=== PATIENT | male | born 1960 | race Caucasian/White ===

== ENCOUNTER 2020-02-01 16:50 | Observation (INO) | payer OTHER ==
[2020-02-01] MEDS ORDERED: SODIUM CHLORIDE 0.9% 500 ML 500 ML IV STA (16:54)
--- NOTE | 2020-02-01 17:07 | ED ---
General Adult HPI - General Chief complaint: Trauma Stated complaint: trauma Time Seen by Provider: 02/01/20 16:50 Source: patient, EMS, RN notes reviewed, old records reviewed Mode of arrival: EMS Limitations: no limitations - History of Present Illness Initial comments: This is a 59-year-old male who presents to the emergency department after his lawnmower rolled over him while he was mowing his lawn. Patient states she was mowing on a hill and rolled right over he put his foot down and when he tried to get up afterward rolled over he was unable to walk on her foot. EMS stated that at the scene his ankle looked dislocated in the process of moving of the ankle seemed to go back into place. Patient has a laceration on both sides of the malleolus posteriorly on the medial aspect that measures about 2-1/2 cm on the lateral side it measures about 4 cm. Patient also complains of a little lower back pain. Patient states he did not hit his head or neck. Patient has no headache and no neck tenderness. Patient denies any numbness weakness. Patient denies any chest pain or upper back pain. Patient denies any abdominal pain. Patient denies any other extremity pain except for the right ankle and proximal right leg. Patient admits to having a few drinks prior to mowing his lawn - Related Data Home Medications Medication Instructions Recorded Confirmed Ibuprofen [Motrin Ib] 400 mg PO Q8H PRN 02/01/20 02/01/20 Allergies Allergy/AdvReac Type Severity Reaction Status Date / Time No Known Allergies Allergy Verified 02/01/20 18:46 Review of Systems ROS Statement: Those systems with pertinent positive or pertinent negative responses have been documented in the HPI. ROS Other: All systems not noted in ROS Statement are negative. Past Medical History Past Medical History: No Reported History History of Any Multi-Drug Resistant Organisms: None Reported Past Surgical History: No Surgical Hx Reported Past Psychological History: No Psychological Hx Reported Smoking Status: Never smoker Past Alcohol Use History: Daily Past Drug Use History: None Reported General Exam - General Exam Comments Initial Comments: GENERAL: Patient is well-developed and well-nourished. Patient is nontoxic and well- hydrated and is in mild distress. ENT: Neck is soft and supple. No significant lymphadenopathy is noted. Oropharynx is clear. Moist mucous membranes. Neck has full range of motion without eliciting any pain. EYES: The sclera were anicteric and conjunctiva were pink and moist. Extraocular movements were intact and pupils were equal round and reactive to light. Eyelids were unremarkable. PULMONARY: Unlabored respirations. Good breath sounds bilaterally. No audible rales rhonchi or wheezing was noted. CARDIOVASCULAR: There is a regular rate and rhythm without any murmurs gallops or rubs. ABDOMEN: Soft and nontender with normal bowel sounds. SKIN: Skin is clear with no lesions or rashes and otherwise unremarkable. NEUROLOGIC: Patient is alert and oriented x3. Cranial nerves II through XII are grossly intact. Motor and sensory are also intact. Normal speech, volume and content. Symmetrical smile. MUSCULOSKELETAL: Patient's right ankle has a laceration both medially and laterally medial it measures about 2 and half centimeters laterally measures about 4 cm. Both wounds are dirty. Patient also has some proximal right fibula pain. Patient has a little bit of lower back pain LYMPHATICS: No significant lymphadenopathy is noted PSYCHIATRIC: Normal psychiatric evaluation. Limitations: no limitations Course Vital Signs 02/01/20 16:51 Temperature 98.5 F Pulse Rate 108 H Respiratory 20 Rate Blood Pressure 147/96 O2 Sat by Pulse 97 Oximetry Medical Decision Making - Medical Decision Making Patient states she's had a tetanus shot recently. Patient has good dorsal pedis pulses. Patient also has good posterior tibial pulses This x-ray of the lumbar spine shows no acute abnormality. X-ray of the ankle showed no acute normalities. Because of the report of a possible dislocation of the ankle is CT his ankle and it again showed no fracture. Nursing already irrigated the patient's wound I got quite a bit of debris out I went in and continue to irrigate after the CAT scan was done and I continue to 5 more debris and it appeared that maybe the patient had some sort of penetrating injury that went from one side to the other just anterior to the Achilles tendon. At this point in time I spoke with Dr. Grayson and told him my concerns about possible contamination he agreed to come in graciously and wash the patient out the operating room. - Lab Data Result diagrams: 02/01/20 16:54 02/01/20 16:54 Lab Results 02/01/20 02/01/20 02/01/20 Range/Units 16:54 16:54 16:54 WBC 9.4 (3.8-10.6) k/uL RBC 4.70 (4.30-5.90) m/uL Hgb 14.4 (13.0-17.5) gm/dL Hct 43.0 (39.0-53.0) % MCV 91.4 (80.0-100.0) fL MCH 30.6 (25.0-35.0) pg MCHC 33.5 (31.0-37.0) g/dL RDW 12.4 (11.5-15.5) % Plt Count 171 (150-450) k/uL Neutrophils % 62 % Lymphocytes % 28 % Monocytes % 5 % Eosinophils % 2 % Basophils % 1 % Neutrophils # 5.9 (1.3-7.7) k/uL Lymphocytes # 2.6 (1.0-4.8) k/uL Monocytes # 0.5 (0-1.0) k/uL Eosinophils # 0.2 (0-0.7) k/uL Basophils # 0.1 (0-0.2) k/uL PT 10.0 (9.0-12.0) sec INR 1.0 (<1.2) APTT 22.4 (22.0-30.0) sec Sodium 138 (137-145) mmol/L Potassium 4.6 (3.5-5.1) mmol/L Chloride 109 H (98-107) mmol/L Carbon Dioxide 18 L (22-30) mmol/L Anion Gap 11 mmol/L BUN 12 (9-20) mg/dL Creatinine 0.77 (0.66-1.25) mg/dL Est GFR (CKD-EPI)AfAm >90 (>60 ml/min/1.73 sqM) Est GFR (CKD-EPI)NonAf >90 (>60 ml/min/1.73 sqM) Glucose 95 (74-99) mg/dL Plasma Lactic Acid Volodymyr (0.7-2.0) mmol/L Calcium 9.0 (8.4-10.2) mg/dL Total Bilirubin 0.7 (0.2-1.3) mg/dL AST 32 (17-59) U/L ALT 39 (4-49) U/L Alkaline Phosphatase 87 (38-126) U/L Total Creatine Kinase (55-170) U/L CK-MB (CK-2) (0.0-2.4) ng/mL CK-MB (CK-2) Rel Index Troponin I (0.000-0.034) ng/mL Total Protein 6.7 (6.3-8.2) g/dL Albumin 4.2 (3.5-5.0) g/dL Amylase 62 (30-110) U/L Lipase 114 (23-300) U/L Serum Alcohol 89 mg/dL 02/01/20 02/01/20 Range/Units 16:54 16:54 WBC (3.8-10.6) k/uL RBC (4.30-5.90) m/uL Hgb (13.0-17.5) gm/dL Hct (39.0-53.0) % MCV (80.0-100.0) fL MCH (25.0-35.0) pg MCHC (31.0-37.0) g/dL RDW (11.5-15.5) % Plt Count (150-450) k/uL Neutrophils % % Lymphocytes % % Monocytes % % Eosinophils % % Basophils % % Neutrophils # (1.3-7.7) k/uL Lymphocytes # (1.0-4.8) k/uL Monocytes # (0-1.0) k/uL Eosinophils # (0-0.7) k/uL Basophils # (0-0.2) k/uL PT (9.0-12.0) sec INR (<1.2) APTT (22.0-30.0) sec Sodium (137-145) mmol/L Potassium (3.5-5.1) mmol/L Chloride (98-107) mmol/L Carbon Dioxide (22-30) mmol/L Anion Gap mmol/L BUN (9-20) mg/dL Creatinine (0.66-1.25) mg/dL Est GFR (CKD-EPI)AfAm (>60 ml/min/1.73 sqM) Est GFR (CKD-EPI)NonAf (>60 ml/min/1.73 sqM) Glucose (74-99) mg/dL Plasma Lactic Acid Volodymyr 3.2 H* (0.7-2.0) mmol/L Calcium (8.4-10.2) mg/dL Total Bilirubin (0.2-1.3) mg/dL AST (17-59) U/L ALT (4-49) U/L Alkaline Phosphatase (38-126) U/L Total Creatine Kinase 45 L (55-170) U/L CK-MB (CK-2) 0.7 (0.0-2.4) ng/mL CK-MB (CK-2) Rel Index 1.6 Troponin I <0.012 (0.000-0.034) ng/mL Total Protein (6.3-8.2) g/dL Albumin (3.5-5.0) g/dL Amylase (30-110) U/L Lipase (23-300) U/L Serum Alcohol mg/dL Critical Care Time Critical Care Time: Yes Total Critical Care Time: 35 Disposition Clinical Impression: Fracture of proximal end of fibula, Penetrating ankle wound Disposition: ADMITTED IP TO THIS HOSP Referrals: None,Stated [Primary Care Provider] - 1-2 days Time of Disposition: 19:11
[2020-02-01 17:11] LABS: Basophils # (A) 0.1 k/uL (0-0.2); Basophils % (A) 1 %; Eosinophils # (A) 0.2 k/uL (0-0.7); Eosinophils % (A) 2 %; HGB 14.4 gm/dL (13.0-17.5); Lymphocytes # (A) 2.6 k/uL (1.0-4.8); Lymphocytes % (A) 28 %; MCH 30.6 pg (25.0-35.0); MCHC 33.5 g/dL (31.0-37.0); MCV 91.4 fL (80.0-100.0); Mean Platelet Volume 9.6; Monocytes # (A) 0.5 k/uL (0-1.0); Monocytes % (A) 5 %; Neutrophils # (A) 5.9 k/uL (1.3-7.7); Neutrophils % (A) 62 %; Platelet Count 171 k/uL (150-450); RDW 12.4 % (11.5-15.5); WBC 9.4 k/uL (3.8-10.6)
[2020-02-01] MEDS ORDERED: HYDROmorphone 1 MG/ML 1 ML SYRINGE IVP STA (17:16)
[2020-02-01] MEDS ORDERED: ONDANSETRON 4 MG/2 ML VIAL IVP STA (17:16)
--- NOTE | 2020-02-01 17:22 | XR ---
EXAMINATION TYPE: XR tibia fibula RT DATE OF EXAM: 02/01/2020 COMPARISON: NONE HISTORY: Trauma. Pain. TECHNIQUE: 5 views FINDINGS: There is soft tissue defect over the posterior aspect of the lower tibia consistent with la ceration. There are small densities that measure up to 1 mm that could be foreign bodies in the soft tissues. The tibia appears intact. There is oblique nondisplaced fracture of the head of the fibula. Ankle mortise is anatomic. IMPRESSION: Laceration deformity of the soft tissues over the posterior lower tibia. Fibula head fracture.
[2020-02-01 17:23] LABS: Partial Thromboplastin Time 22.4 sec (22.0-30.0)
--- NOTE | 2020-02-01 17:24 | XR ---
EXAMINATION TYPE: XR chest 1V portable DATE OF EXAM: 02/01/2020 COMPARISON: NONE HISTORY: Pain. Trauma. TECHNIQUE: Single view FINDINGS: Heart and mediastinum are normal. There is 3 cm sharply marginated rounded masslike density over the left lateral lung base. There is possible sharply marginated similar 12 mm density over the left upper lobe adjacent to the anterior first rib. The right lung is clear. There is no pleural eff usion or pneumothorax. I see no rib fracture. IMPRESSION: Left-sided pulmonary densities. Left lower lobe density is relatively dense and sharply m arginated and could be a large granuloma. Left upper lobe density also probably a granuloma.
--- NOTE | 2020-02-01 17:26 | XR ---
EXAMINATION TYPE: XR pelvis AP view DATE OF EXAM: 02/01/2020 COMPARISON: NONE HISTORY: Trauma. Pain. TECHNIQUE: Single view FINDINGS: The pelvic ring is intact. Proximal femurs and hip joints are intact. Sacroiliac joints garrett ear normal. IMPRESSION: Normal pelvis.
[2020-02-01 17:33] LABS: ALT 39 U/L (4-49); AST 32 U/L (17-59); African American GFR (CKD) >90 (>60 ml/min/1.73 sqM); Albumin 4.2 g/dL (3.5-5.0); Alkaline Phosphatase 87 U/L (38-126); Amylase 62 U/L (30-110); Anion Gap 11 mmol/L; Blood Urea Nitrogen 12 mg/dL (9-20); Carbon Dioxide 18 mmol/L (22-30); Chloride 109 mmol/L (98-107); Creatine Kinase 45 U/L (55-170); Glucose 95 mg/dL (74-99); Lipase 114 U/L (23-300); Non-African American GFR(CKD) >90 (>60 ml/min/1.73 sqM); Sodium 138 mmol/L (137-145); Total Bilirubin 0.7 mg/dL (0.2-1.3); Total Protein 6.7 g/dL (6.3-8.2)
[2020-02-01 17:42] LABS: Alcohol 89 mg/dL; Potassium 4.6 mmol/L (3.5-5.1)
[2020-02-01 17:45] LABS: Creatine Kinase MB 0.7 ng/mL (0.0-2.4); Troponin I <0.012 ng/mL (0.000-0.034)
--- NOTE | 2020-02-01 17:58 | CT ---
CT scan of the right ankle. History pain. Trauma. Comparison none. TECHNIQUE: Multiple axial sections were obtained from the mid tibia to the mid metatarsals without contrast. FINDINGS: There is soft tissue air posterior to the lower tibia. There is 2 mm foreign body in the soft tissues posteriorly. There is laceration deformity that measures up to 1.6 cm in depth. This is seen on the medial aspect of the Achilles tendon. The calcaneus is intact. Talus is intact. Ankle mortise is anatomic. I see no focal bone destruction. Joint spaces are fairly normal. The bones of the midfoot appear intact. Proximal metatarsals are int act. IMPRESSION: Large laceration defect on the medial posterior lower leg as above. Small foreign body. Achilles tend on appears intact. No fracture seen.
--- NOTE | 2020-02-01 18:06 | XR ---
EXAMINATION TYPE: XR lumbosacral spine min 4V DATE OF EXAM: 02/01/2020 COMPARISON: NONE HISTORY: Back pain TECHNIQUE: 5 views FINDINGS: There is 9 mm anterior subluxation of L5 in relation S1. I see no definite spondylolysis. T he disc spaces are normal. There is no compression fracture. Sacroiliac joints appear intact. IMPRESSION: First-degree L5-S1 spondylolisthesis without definite spondylolysis. No acute bony abnorm ality seen.
[2020-02-01] MEDS ORDERED: LIDOCAINE 1% INJ 10MG/ML (20 ML MDV) SQ ONE (18:20)
[2020-02-01] MEDS ORDERED: ONDANSETRON 4 MG/2 ML VIAL ONE (20:11)
[2020-02-01] MEDS ORDERED: SUCCINYLCHOLINE CHLORIDE 100 MG/5 ML SYR IV ONE (20:11)
[2020-02-01] MEDS ORDERED: DEXAMETHASONE SOD PHOSPHATE 10 MG/ML 1 ML VIAL ONE (20:11)
[2020-02-01] MEDS ORDERED: IV FLUID CONTINUATION 800 ML IV ONE (20:11)
[2020-02-01] MEDS ORDERED: fentaNYL (PF) 50 MCG/ML 2 ML AMP ONE (20:11)
[2020-02-01] MEDS ORDERED: PROPOFOL 10 MG/ML 20 ML VIAL IV ONE (20:11)
[2020-02-01] MEDS ORDERED: ePHEDrine SULFATE/0.9% NACL/PF 50 MG/5 ML SYRINGE IV ONE (20:11)
[2020-02-01] MEDS ORDERED: MIDAZOLAM 2 MG/2 ML VIAL ONE (20:11)
[2020-02-01] MEDS ORDERED: LIDOCAINE 1% INJ 10MG/ML (20 ML MDV) ONE (20:11)
--- NOTE | 2020-02-01 20:13 | P.HPOR ---
History of Present Illness H&P Date: 02/01/20 Chief Complaint: Right ankle injury 59-year-old patient was mowing his lawn earlier today the long more flipped over sustaining some type of impaling injury to the posterior aspect of the right ankle. Review of Systems Constitutional: Reports as per HPI Past Medical History Past Medical History: No Reported History History of Any Multi-Drug Resistant Organisms: None Reported Past Surgical History: No Surgical Hx Reported Past Psychological History: No Psychological Hx Reported Smoking Status: Never smoker Past Alcohol Use History: Daily Past Drug Use History: None Reported Medications and Allergies Home Medications Medication Instructions Recorded Confirmed Type Ibuprofen [Motrin Ib] 400 mg PO Q8H PRN 02/01/20 02/01/20 History Allergies Allergy/AdvReac Type Severity Reaction Status Date / Time No Known Allergies Allergy Verified 02/01/20 18:46 Physical Examination Osteopathic Statement: *. No significant issues noted on an osteopathic structural exam other than those noted in the History and Physical/Consult. There appears to be a traumatic laceration measuring about 3 cm along the lateral posterior ankle area just anterior to the Achilles is also a 3-4 cm laceration on the medial aspect of the ankle again this is posteriorly just anterior to the Achilles tendon. The Achilles itself appears to be intact. There is a good pulse dorsally. The patient is able to dorsiflex and plantarflex ankle. The patient's able to move his toes with no pain. He has good perfusion sensation distally. Results - Labs Labs: Abnormal Lab Results - Last 24 Hours (Table) 02/01/20 02/01/20 02/01/20 Range/Units 16:54 16:54 16:54 Chloride 109 H (98-107) mmol/L Carbon Dioxide 18 L (22-30) mmol/L Plasma Lactic Acid Volodymyr 3.2 H* (0.7-2.0) mmol/L Total Creatine Kinase 45 L (55-170) U/L H & H 02/01/20 Range/Units 16:54 Hgb 14.4 (13.0-17.5) gm/dL Hct 43.0 (39.0-53.0) % Coagulation 02/01/20 Range/Units 16:54 INR 1.0 (<1.2) Result Diagrams: 02/01/20 16:54 02/01/20 16:54 - Diagnostic results Knee x-ray: report reviewed, image reviewed (Proximal fibular fracture) Ankle/Foot x-ray: report reviewed (Soft tissue injury no fracture), image reviewed Assessment and Plan Assessment: 1. Right ankle impaling injury posterior aspect 2. Right proximal fibular fracture Plan: I discussed his injury. I recommended irrigation with debridement and possible repair of any soft tissue injury that we encountered. The procedure, risks, complications and recovery were discussed, patient was agreeable. Consent was obtained. Time with Patient: Less than 30
[2020-02-01] MEDS ORDERED: BACITRACIN ZINC 500 UNIT/GM OINT 28.4 GM TUBE TOPICAL ONE (20:43)
[2020-02-01] MEDS ORDERED: HYDROcodone/APAP 5-325MG 1 EACH TAB PO PRN (20:53)
[2020-02-01] MEDS: HYDROmorphone 1 MG/ML 1 ML SYRINGE IVP ONE ×4 (20:55→21:13)
--- NOTE | 2020-02-01 20:58 | P.OP ---
Date of Procedure: 02/01/20 Preoperative Diagnosis: Right ankle penetrating wound Postoperative Diagnosis: Right ankle penetrating wound posterior aspect with complex lacerations involving the medial and lateral aspect Procedure(s) Performed: 1. Irrigation debridement right ankle penetrating wound 2. Repair 4 cm complex laceration medial aspect right ankle 3. Repair 5 cm complex laceration lateral aspect right ankle Anesthesia: GIGI Surgeon: Ralph Grayson Trackmobile Operator #1: Florencio Ruiz Estimated Blood Loss (ml): 3 Pathology: none sent Condition: stable Disposition: PACU Indications for Procedure: 59-year-old patient seen with a penetrating injury to the right ankle. I recommended irrigation and debridement with possible repair structures as indicated right ankle. He was agreeable and consent was obtained. Operative Findings: See description of procedure Description of Procedure: Patient was taken to the operative suite. Patient received preoperative IV antibiotics. Patient underwent a general anesthetic by the department of anesthesia. A well-padded tourniquet placed proximal right thigh. Right lower extremity prepped and draped in normal sterile orthopedic fashion. At this point the wound was evaluated. There was a penetrating wound involving the posterior aspect of the right ankle with lacerations on the medial lateral aspect. I fitted 6 my finger all the way through this penetrating wound. It was posterior to the tibia and anterior to the Achilles tendon. Both structures appeared intact. Upon deeper exploration of the wound I do not appreciate tearing of the Achilles and all other structures appeared intact and stable. Utilizing a 15 blade I debrided some devitalized tissue superficially essentially skin tissue along the medial lateral aspects of the ankle. I then irrigated the wound out with 3000 mL saline solution. I now explored the wound again and I did not note any additional devitalized abnormal looking tissue. We now repaired the 4 cm medial complex laceration utilizing nylon sutures loosely approximating the wound. I now repaired the lateral complex 5 semi-laceration utilizing nylon suture again loosely repairing this laceration. Sterile dressings were applied to include antibiotic ointment. Sterile web bone Owen bandage were applied. The patient was awakened and transferred to recovery stable condition. No tourniquet was utilized. Ulises TEAGUE assisted with the procedure.
[2020-02-01] MEDS ORDERED: VANCOMYCIN IV PER PHARMACY 1 EACH MISC MISCELLANE SCH (21:00)
--- NOTE | 2020-02-01 21:09 | P.GSHP ---
History of Present Illness H&P Date: 02/01/20 Chief Complaint: Prior to trauma 59-year-old male comes in the emergency department this afternoon as a priority 2 trauma activation. Patient was on his lawnmower when it rolled over him. Initially it was thought the patient had a open fracture dislocation of the right ankle. Further evaluation revealed a through and through penetrating injury to the ankle region just anterior to the Achilles tendon. The patient was taken to the operating room by orthopedics for washout. He was intoxicated. Patient was intoxicated on arrival. Complaining of some lower back pain and right ankle pain. No head trauma. Denies chest pain or abdominal pain. Patient evaluated in the recovery room after his washout. - Review of Systems Comment: The patient denies any acute changes in vision or hearing, no dysphagia or odynophagia, no chest pain or shortness of breath, no dysuria or hematuria, no headache, no runny nose, no rectal bleeding or melena, no unexplained weight loss Past Medical History Past Medical History: No Reported History History of Any Multi-Drug Resistant Organisms: None Reported Past Surgical History: No Surgical Hx Reported Past Psychological History: No Psychological Hx Reported Smoking Status: Never smoker Past Alcohol Use History: Daily Past Drug Use History: None Reported Medications and Allergies Home Medications Medication Instructions Recorded Confirmed Type Ibuprofen [Motrin Ib] 400 mg PO Q8H PRN 02/01/20 02/01/20 History Allergies Allergy/AdvReac Type Severity Reaction Status Date / Time No Known Allergies Allergy Verified 02/01/20 18:46 Surgical - Exam Vital Signs Temp Pulse Resp BP Pulse Ox 98.5 F 108 H 20 147/96 97 02/01/20 16:51 02/01/20 16:51 02/01/20 16:51 02/01/20 16:51 02/01/20 16:51 Physical exam: General: Well-developed, well-nourished HEENT: Normocephalic, sclerae nonicteric, atraumatic, trachea midline Chest: Nontender, equal breath sounds Abdomen: Nontender, nondistended Extremities: Right ankle with Owen wrap in place, some swelling appreciated, foot warm with palpable pedal pulses bilaterally Neuro: Alert and oriented Results - Labs 02/01/20 16:54 02/01/20 16:54 Abnormal Lab Results - Last 24 Hours (Table) 07/06/1202/01/20 02/01/20 Range/Units 16:54 16:54 16:54 Chloride 109 H (98-107) mmol/L Carbon Dioxide 18 L (22-30) mmol/L Plasma Lactic Acid Volodymyr 3.2 H* (0.7-2.0) mmol/L Total Creatine Kinase 45 L (55-170) U/L Diabetes panel 02/01/20 Range/Units 16:54 Sodium 138 (137-145) mmol/L Potassium 4.6 (3.5-5.1) mmol/L Chloride 109 H (98-107) mmol/L Carbon Dioxide 18 L (22-30) mmol/L BUN 12 (9-20) mg/dL Creatinine 0.77 (0.66-1.25) mg/dL Glucose 95 (74-99) mg/dL Calcium 9.0 (8.4-10.2) mg/dL AST 32 (17-59) U/L ALT 39 (4-49) U/L Alkaline Phosphatase 87 (38-126) U/L Total Protein 6.7 (6.3-8.2) g/dL Albumin 4.2 (3.5-5.0) g/dL Calcium panel 02/01/20 Range/Units 16:54 Calcium 9.0 (8.4-10.2) mg/dL Albumin 4.2 (3.5-5.0) g/dL Pituitary panel 02/01/20 Range/Units 16:54 Sodium 138 (137-145) mmol/L Potassium 4.6 (3.5-5.1) mmol/L Chloride 109 H (98-107) mmol/L Carbon Dioxide 18 L (22-30) mmol/L BUN 12 (9-20) mg/dL Creatinine 0.77 (0.66-1.25) mg/dL Glucose 95 (74-99) mg/dL Calcium 9.0 (8.4-10.2) mg/dL Adrenal panel 02/01/20 Range/Units 16:54 Sodium 138 (137-145) mmol/L Potassium 4.6 (3.5-5.1) mmol/L Chloride 109 H (98-107) mmol/L Carbon Dioxide 18 L (22-30) mmol/L BUN 12 (9-20) mg/dL Creatinine 0.77 (0.66-1.25) mg/dL Glucose 95 (74-99) mg/dL Calcium 9.0 (8.4-10.2) mg/dL Total Bilirubin 0.7 (0.2-1.3) mg/dL AST 32 (17-59) U/L ALT 39 (4-49) U/L Alkaline Phosphatase 87 (38-126) U/L Total Protein 6.7 (6.3-8.2) g/dL Albumin 4.2 (3.5-5.0) g/dL Assessment and Plan (1) Penetrating ankle wound Narrative/Plan: 59-year-old male with trauma 2 activation for right ankle injury. Patient doing fairly well after washout by orthopedics. No further plans for additional imaging currently. Recheck labs tomorrow. Monitor motor and sensory right foot. We'll consult hospitalist. Continue antibiotics. Possible discharge tomorrow. Current Visit: Yes Status: Acute Code(s): S91.039A - PUNCTURE WOUND WITHOUT FOREIGN BODY, UNSP ANKLE, INIT ENCNTR SNOMED Code(s): 079411133
[2020-02-01] MEDS ORDERED: MAGNESIUM HYDROXIDE 2,400 MG/10 ML CUP PO PRN (21:13)
[2020-02-01] MEDS ORDERED: HYDROmorphone 1 MG/ML 1 ML SYRINGE IVP PRN (21:13)
[2020-02-01] MEDS ORDERED: HYDROcodone/APAP 7.5-325MG 1 EACH TAB PO PRN (21:13)
[2020-02-01] MEDS ORDERED: ONDANSETRON 4 MG/2 ML VIAL IVP ONE (21:13)
[2020-02-01] MEDS: VANCOMYCIN 1,500 MG in SODIUM CHLORIDE 0.9% 250 ML IVPB SCH (22:07)
[2020-02-02] MEDS: KETOROLAC 30 MG/ML 1 ML VIAL IVP SCH ×2 (00:10→05:55)
[2020-02-02] MEDS: metroNIDAZOLE-NS PMX 500 MG in SALINE 1 100ML.BAG IVPB SCH ×2 (00:11→10:04)
[2020-02-02] MEDS: HEPARIN SODIUM,PORCINE 5,000 UNIT/ML 1 ML VIAL SQ SCH ×2 (00:11→10:05)
[2020-02-02 01:38] LABS: Appearance,Urine Clear (Clear); Bilirubin,Urine Negative (Negative); Blood,Urine Negative (Negative); Color,Urine Yellow; Glucose,Urine (UA) Negative (Negative); Ketones,Urine 2+ (Negative); Leukocyte Esterase,Urine Negative (Negative); Nitrite,Urine Negative (Negative); Protein,Urine Negative (Negative)
[2020-02-02 01:52] LABS: Amphetamine Screen,Urine Not Detected (NotDetected); Barbiturate Screen,Urine Not Detected (NotDetected); Benzodiazepines Screen,Urine Not Detected (NotDetected); Cocaine Screen,Urine Not Detected (NotDetected); Methadone Screen, Urine Not Detected (NotDetected); Opiate Screen,Urine Detected (NotDetected); Oxycodone Screen, Urine Not Detected (NotDetected); Phencyclidine Screen,Urine Not Detected (NotDetected); Tricyclic Antidepressant,Urine Not Detected (NotDetected); Urn Cannabinoid Scrn Not Detected (NotDetected)
[2020-02-02 04:12] VITALS: BP 130/81; PULSE 74; RESP 16; TEMP 98
[2020-02-02] MEDS: VANCOMYCIN 1,500 MG in SODIUM CHLORIDE 0.9% 250 ML IVPB SCH (05:55)
[2020-02-02 06:39] LABS: Basophils % (A) 0 %; Eosinophils % (A) 0 %; HCT 38.8 % (39.0-53.0); HGB 13.5 gm/dL (13.0-17.5); Lymphocytes # (A) 0.8 k/uL (1.0-4.8); Lymphocytes % (A) 8 %; MCH 32.1 pg (25.0-35.0); MCHC 34.9 g/dL (31.0-37.0); Mean Platelet Volume 8.7; Monocytes # (A) 0.3 k/uL (0-1.0); Monocytes % (A) 2 %; Neutrophils # (A) 9.2 k/uL (1.3-7.7); Neutrophils % (A) 89 %; Platelet Count 154 k/uL (150-450); RBC 4.21 m/uL (4.30-5.90); RDW 12.4 % (11.5-15.5); WBC 10.4 k/uL (3.8-10.6)
[2020-02-02 07:12] LABS: ALT 33 U/L (4-49); AST 24 U/L (17-59); African American GFR (CKD) >90 (>60 ml/min/1.73 sqM); Albumin 3.6 g/dL (3.5-5.0); Alkaline Phosphatase 81 U/L (38-126); Anion Gap 6 mmol/L; Blood Urea Nitrogen 13 mg/dL (9-20); Calcium 8.4 mg/dL (8.4-10.2); Carbon Dioxide 24 mmol/L (22-30); Chloride 107 mmol/L (98-107); Glucose 123 mg/dL (74-99); Non-African American GFR(CKD) >90 (>60 ml/min/1.73 sqM); Potassium 4.5 mmol/L (3.5-5.1); Sodium 137 mmol/L (137-145); Total Bilirubin 0.8 mg/dL (0.2-1.3); Total Protein 5.8 g/dL (6.3-8.2)
[2020-02-02] MEDS ORDERED: FAMOTIDINE 20 MG/2 ML VIAL IV SCH (09:00)
--- NOTE | 2020-02-02 09:37 | P.CONS ---
History of Present Illness - Reason for Consult Consult date: 02/02/20 lung abnormality Requesting physician: Cedrick Sahni - Chief Complaint right leg pain and laceration - History of Present Illness Patient is a 59-year-old male with no known past medical history who came to the emergency department as a primary trauma activation. Patient was urgently taken to the operating room for a washout of his right ankle and there was some concern about a penetrating injury and tendon exposure. We are asked to consult regarding left lung nodule. Patient seen and examined at bedside. He reports that he is having a throbbing feeling in his right ankle, is able to move the toes and we will be ankle, no chest pain, shortness breath, nausea, vomiting, or headache. He describes that his [place] came out from underneath him as he was going back up the hill and he placed his foot down to help with it which is when the [place] rolled. Intermittent dizziness with heat exposure. PCP: Dr. 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 Review of Systems Pertinent positives and negatives as discussed in HPI, a complete review of systems was performed and all other systems are negative. Past Medical History Additional Past Medical History / Comment(s): Hx HTN but was take off meds by his PCP History of Any Multi-Drug Resistant Organisms: None Reported Past Surgical History: No Surgical Hx Reported Past Anesthesia/Blood Transfusion Reactions: No Reported Reaction Smoking Status: Current every day smoker Additional History: 1 PPD tobacco. ETOH: weekends 2 beers and 2 shots - Past Family History Father Additional Family Medical History / Comment(s): from [place] Mother Family Medical History: Diabetes Mellitus Medications and Allergies Home Medications Medication Instructions Recorded Confirmed Type Ibuprofen [Motrin Ib] 400 mg PO Q8H PRN 02/01/20 02/01/20 History Cephalexin [Keflex] 500 mg PO Q6HR 7 Days #28 cap 02/02/20 Rx traMADol HCl [Ultram] 50 mg PO Q6H PRN #28 tab 02/02/20 Rx Allergies Allergy/AdvReac Type Severity Reaction Status Date / Time No Known Allergies Allergy Verified 02/01/20 18:46 Physical Exam Osteopathic Statement: *. No significant issues noted on an osteopathic structural exam other than those noted in the History and Physical/Consult. Vitals: Vital Signs Temp Pulse Pulse Pulse Resp BP BP 02/02/20 04:11 98.0 F 74 16 130/81 02/02/20 00:48 63 130/76 02/02/20 00:33 63 127/78 02/02/20 00:18 65 137/84 02/02/20 00:03 63 134/77 02/01/20 23:48 67 139/84 02/01/20 23:33 68 145/83 02/01/20 23:18 68 142/83 02/01/20 22:48 65 136/81 02/01/20 22:33 67 128/84 02/01/20 22:18 70 147/86 02/01/20 22:03 68 151/88 02/01/20 21:48 75 158/87 02/01/20 21:33 98.3 F 77 17 138/84 02/01/20 21:16 75 16 138/79 02/01/20 21:00 85 16 149/79 02/01/20 20:51 97.0 F L 84 16 150/77 02/01/20 16:51 98.5 F 108 H 20 147/96 Pulse Ox 02/02/20 04:11 97 02/02/20 00:48 97 02/02/20 00:33 97 02/02/20 00:18 97 02/02/20 00:03 97 02/01/20 23:48 97 02/01/20 23:33 98 02/01/20 23:18 98 02/01/20 22:48 97 02/01/20 22:33 97 02/01/20 22:18 98 02/01/20 22:03 97 02/01/20 21:48 97 02/01/20 21:33 93 L 02/01/20 21:16 93 L 02/01/20 21:00 91 L 02/01/20 20:51 96 02/01/20 16:51 97 Intake and Output 02/01/20 02/02/20 02/02/20 22:59 06:59 14:59 Intake Total 400 Output Total 500 Balance 400 -500 Intake: IV 400 Oral 0 Output: Urine 500 Other: # Voids 1 Weight 77 kg General: non toxic, no distress, appears at stated age, normal weight Derm: See just above the medial and lateral aspects of the right calf without warmth, erythema, or drainage no unusual ecchymoses, warm, dry Head: atraumatic, normocephalic, symmetric Eyes: EOMI, no lid lag, anicteric sclera, pupils equal round reactive to light ENT: Nose and ears atraumatic, no thrush, no pharyngeal erythema Neck: No thyromegaly, no cervical lymphadenopathy, trachea midline, supple Mouth: no lip lesion, mucus membranes moist Cardiovascular: S1S2 reg, no murmur, positive posterior tibial pulse bilateral, no edema, capillary refill less than 2 seconds Lungs: CTA bilateral, no rhonchi, no rales , no accessory muscle use Abdominal: soft, nontender to palpation, no guarding, no appreciable organomegaly, normal bowel sounds Ext: no gross muscle atrophy, muscle strength 5 out of 5 in upper extremities grossly, no contractures, , able to wiggle toes and flex and extend right ankle Neuro: CN II-XI grossly intact, light touch intact all 4 extremities, finger to nose within normal limits, Psych: Alert, oriented, appropriate affect Results CBC & Chem 7: 02/02/20 06:12 02/02/20 06:12 Labs: Abnormal Lab Results - Last 24 Hours (Table) 02/01/20 02/01/20 02/01/20 Range/Units 16:54 16:54 16:54 RBC (4.30-5.90) m/uL Hct (39.0-53.0) % Neutrophils # (1.3-7.7) k/uL Lymphocytes # (1.0-4.8) k/uL Chloride 109 H (98-107) mmol/L Carbon Dioxide 18 L (22-30) mmol/L Glucose (74-99) mg/dL Plasma Lactic Acid Volodymyr 3.2 H* (0.7-2.0) mmol/L Total Creatine Kinase 45 L (55-170) U/L Total Protein (6.3-8.2) g/dL Urine Ketones (Negative) Urine Opiates Screen (NotDetected) U Methamphetamines Scrn (NotDetected) 02/01/20 02/02/20 02/02/20 Range/Units 19:52 01:11 06:12 RBC 4.21 L (4.30-5.90) m/uL Hct 38.8 L (39.0-53.0) % Neutrophils # 9.2 H (1.3-7.7) k/uL Lymphocytes # 0.8 L (1.0-4.8) k/uL Chloride (98-107) mmol/L Carbon Dioxide (22-30) mmol/L Glucose (74-99) mg/dL Plasma Lactic Acid Volodymyr 2.2 H* (0.7-2.0) mmol/L Total Creatine Kinase (55-170) U/L Total Protein (6.3-8.2) g/dL Urine Ketones 2+ H (Negative) Urine Opiates Screen Detected H (NotDetected) U Methamphetamines Scrn Detected H (NotDetected) 02/02/20 Range/Units 06:12 RBC (4.30-5.90) m/uL Hct (39.0-53.0) % Neutrophils # (1.3-7.7) k/uL Lymphocytes # (1.0-4.8) k/uL Chloride (98-107) mmol/L Carbon Dioxide (22-30) mmol/L Glucose 123 H (74-99) mg/dL Plasma Lactic Acid Volodymyr (0.7-2.0) mmol/L Total Creatine Kinase (55-170) U/L Total Protein 5.8 L (6.3-8.2) g/dL Urine Ketones (Negative) Urine Opiates Screen (NotDetected) U Methamphetamines Scrn (NotDetected) Assessment and Plan Assessment: Left lung mass - Known, had previous biopsy and not malignant - outpatient follow up with PCP added to chart. HX HTN - not on meds - BP controlled during this stay - follow-up PCP Penetrating ankle wound -Status post intraoperative washout -Be on crutches with no weightbearing per orthopedic surgery -Follow up with [facility] in 2 weeks Lactic acidosis, resolved Alcohol use Medically optimized for discharge. Thank you for allowing us to participate in the care of this pleasant patient. Do not hesitate to contact us with questions. Someone can be reached from the [facility] hospitalist group all hours of the day at [phone] or via perfect serve.
--- NOTE | 2020-02-02 09:38 | P.PN ---
Subjective Progress Note Date: 02/02/20 Principal diagnosis: Status post irrigation and debridement left ankle penetrating wound, laceration repair 2 left ankle wound Patient was evaluated today at the bedside, he is resting comfortably. He has minimal discomfort in the ankle. He denies any fevers or chills at this time. Denies any chest pain or shortness of breath. Objective - Vital Signs Vital signs: Vital Signs Temp 98.0 F 02/02/20 04:11 Pulse 74 02/02/20 04:11 Resp 16 02/02/20 04:11 BP 130/81 02/02/20 04:11 Pulse Ox 97 02/02/20 04:11 Intake & Output 02/01/20 02/02/20 02/02/20 18:59 06:59 18:59 Intake Total 400 Output Total 500 Balance -100 Weight 83.915 kg 77 kg Intake: IV 400 Oral 0 Output: Urine 500 Other: # Voids 1 - Exam Right lower extremity: Postoperative bandages removed at bedside, sutures are all in good position and condition of both wounds. There is no obvious drainage or purulent material. No significant areas of erythema appreciated. Patient is able to wiggle all the toes, and plantar and dorsiflex ankle and minimal discomfort. Sensory exam to light touch is intact throughout the extremity. Calf is soft, no tenderness with palpation. Dorsalis pedis pulses 2+. - Labs CBC & Chem 7: 02/02/20 06:12 02/02/20 06:12 Labs: Abnormal Lab Results - Last 24 Hours (Table) 02/01/20 02/01/20 02/01/20 Range/Units 16:54 16:54 16:54 RBC (4.30-5.90) m/uL Hct (39.0-53.0) % Neutrophils # (1.3-7.7) k/uL Lymphocytes # (1.0-4.8) k/uL Chloride 109 H (98-107) mmol/L Carbon Dioxide 18 L (22-30) mmol/L Glucose (74-99) mg/dL Plasma Lactic Acid Volodymyr 3.2 H* (0.7-2.0) mmol/L Total Creatine Kinase 45 L (55-170) U/L Total Protein (6.3-8.2) g/dL Urine Ketones (Negative) Urine Opiates Screen (NotDetected) U Methamphetamines Scrn (NotDetected) 02/01/20 02/02/20 02/02/20 Range/Units 19:52 01:11 06:12 RBC 4.21 L (4.30-5.90) m/uL Hct 38.8 L (39.0-53.0) % Neutrophils # 9.2 H (1.3-7.7) k/uL Lymphocytes # 0.8 L (1.0-4.8) k/uL Chloride (98-107) mmol/L Carbon Dioxide (22-30) mmol/L Glucose (74-99) mg/dL Plasma Lactic Acid Volodymyr 2.2 H* (0.7-2.0) mmol/L Total Creatine Kinase (55-170) U/L Total Protein (6.3-8.2) g/dL Urine Ketones 2+ H (Negative) Urine Opiates Screen Detected H (NotDetected) U Methamphetamines Scrn Detected H (NotDetected) 02/02/20 Range/Units 06:12 RBC (4.30-5.90) m/uL Hct (39.0-53.0) % Neutrophils # (1.3-7.7) k/uL Lymphocytes # (1.0-4.8) k/uL Chloride (98-107) mmol/L Carbon Dioxide (22-30) mmol/L Glucose 123 H (74-99) mg/dL Plasma Lactic Acid Volodymyr (0.7-2.0) mmol/L Total Creatine Kinase (55-170) U/L Total Protein 5.8 L (6.3-8.2) g/dL Urine Ketones (Negative) Urine Opiates Screen (NotDetected) U Methamphetamines Scrn (NotDetected) Assessment and Plan Assessment: Status post irrigation and debridement left ankle penetrating wound, laceration repair 2 left ankle wounds Plan: Wound care instructions were discussed with the patient today at bedside Pain control, will send patient home on tramadol 50 mg Prescription for Keflex 500 mg every 6 hours for 7 days will also be prescribed Activity level restrictions were discussed for the right ankle Patient will remain on crutches for the next 2 weeks Plan for [facility] Time with Patient: Less than 30
--- NOTE | 2020-02-02 10:57 | P.DS ---
Providers Date of admission: 02/01/20 19:15 Expected date of discharge: 02/02/20 Attending physician: Cedrick Sahni Consults: 02/01/20 21:03 Consult Physician Routine Consulting Provider: Ralph Grayson Consult Reason/Comments: Right limb injury Do you want consulting provider notified?: Already Contacted 02/01/20 21:04 Consult Physician Routine Consulting Provider: Caroline Harrell Consult Reason/Comments: Medical management Do you want consulting provider notified?: Yes Primary care physician: Stated None - Discharge Diagnosis(es) (1) Penetrating ankle wound Patient admitted last night after librarian head rolled over onto its side pinning him. Patient developed through and through injury to the right ankle and a proximal fibular fracture. Underwent washout last night. Doing well today. Complaining of mild lower back pain which she states is improved from yesterday. X-rays yesterday on the spine were negative. He would like to go home. He has been cleared by orthopedics. Will plan discharge with 2 week follow-up with orthopedics. Patient asked to follow-up with his primary care physician. Patient being sent home on both Keflex and tramadol. Return to ER if any new pains develop. Current Visit: Yes Status: Acute Plan - Discharge Summary Discharge Rx Participant: No New Discharge Prescriptions: New Cephalexin [Keflex] 500 mg PO Q6HR 7 Days #28 cap traMADol HCl [Ultram] 50 mg PO Q6H PRN #28 tab PRN Reason: Pain No Action Ibuprofen [Motrin Ib] 400 mg PO Q8H PRN PRN Reason: Pain Discharge Medication List Ibuprofen [Motrin Ib] 400 mg PO Q8H PRN 02/01/20 [History] Cephalexin [Keflex] 500 mg PO Q6HR 7 Days #28 cap 02/02/20 [Rx] traMADol HCl [Ultram] 50 mg PO Q6H PRN #28 tab 02/02/20 [Rx] Follow up Appointment(s)/Referral(s): Brian Monroe MD [REFERRING] - 1 Week Florencio Ruiz PAC [PHYSICIAN [employer]] - 2 Weeks Activity/Diet/Wound Care/Special Instructions: Orthopedic Discharge Instructions: 1. Resume home medications 2. Pain medication as needed 3. Take antibiotic as prescribed 4. Utilize crutches for the next 2 weeks 5. Keep incisions clean and dry, do not get wet, do not remove stitches 6. Plan for [facility]-up at [facility] 2 weeks Discharge Disposition: HOME SELF-CARE
[2020-02-03] MEDS ORDERED: VANCOMYCIN TROUGH DUE 1 EACH MISC MISCELLANE ONE (05:00)
== END 2020-02-02 12:27 | disposition home or self-care (01) ==
LOC: EC 16:50 → INTOOBSV 19:15 → 5NMEDONC 19:15 → UNDODISIN 02-02 12:27
PROVIDERS: ADMIT Surgery; ATTEND Surgery
DX: S91.012A Laceration without foreign body, left ankle, initial encounter (principal); E87.2 Acidosis; W28.XXXA Contact with powered lawn mower, initial encounter; F17.210 Nicotine dependence, cigarettes, uncomplicated; M54.5 Low back pain; I10 Essential (primary) hypertension; Z83.3 Family history of diabetes mellitus; F10.129 Alcohol abuse with intoxication, unspecified; Y90.4 Blood alcohol level of 80-99 mg/100 ml; Z03.818 Encounter for observation for suspected exposure to other biological agents ruled out
CPT/HCPCS: 96361; 96365; 96372; 96375; 99291; 36415; 86900; 86901; 80053 ×2; 82150; 82550; 82553; 83605; 83690; 84484; 85025 ×2; 85610; 85730; 86850; 81003; 87040; 80306; 72110; 72170; 73590; 71045; 73700; 12034; G0378 ×2; G0480; U0003; J2250; J3370 ×2; J1644; J1100; J2405; J0690; J2001; J3010; J1885; J1170; J0330; J2704; 80320